=== PATIENT | female | born 1955 ===

== ENCOUNTER → 2018-08-02 | Outpatient (CLI) | payer OTHER | END | disposition home or self-care (01) | LOC: NUCLEAR 10:08 | DX: R91.1 Solitary pulmonary nodule (principal) | CPT/HCPCS: 78815; A9552 ==

== ENCOUNTER → 2018-08-03 | Outpatient (CLI) | payer OTHER | END | disposition home or self-care (01) | LOC: NUCLEAR 10:56 | DX: I87.2 Venous insufficiency (chronic) (peripheral) (principal); I10 Essential (primary) hypertension ==

== ENCOUNTER 2020-06-13 09:55 | Outpatient (CLI) | payer OTHER | END 2020-06-13 10:02 | disposition home or self-care (01) | LOC: TOM 09:55 | DX: C49.8 Malignant neoplasm of overlapping sites of connective and soft tissue (principal); E04.8 Other specified nontoxic goiter ==